=== PATIENT | female | born 1985 | race Asian ===

== ENCOUNTER 2017-03-20 06:32 | Emergency (ER) | payer SELFPAY ==
[~2017-03-20] VITALS: Ht 177.8 cm; Wt 118.6 kg
[~2017-03-20 06:32] MED LIST: ADALAT; AMOXICILLIN875 MG PO; ANTIVERT 25MG25 MG PO; CARAFATE 1GM1 G PO; DEPO PROVER150 MG/ML IM; EC NAPROSYN500 MG PO; FLEXERIL 1010 MG/TAB PO; FLEXERIL10 MG PO; GLUCOPHAGE500 MG/TAB PO; HCTZ; IBUPROFEN800 MG PO; MAGIMIN80 MG PO; METFORMIN; MOTRIN 800800 MG/TAB PO; NEXIUM 20MG CAP20 MG PO; NO HOME MEDICATIONS; PREDNISONE20 MG PO; PRENATAL1 TA2 PO; TESSALON P100 MG/CAP PO; [UNRECOGNIZED DRUG - OTHER]
[2017-03-20 06:40] VITALS: BP 141/94; TEMP 97.8
[2017-03-20 07:31] LABS: BASO # 0.1 (0.0-0.2); BASO % 0.4 % (0.0-2.0); EOS # 0.2 (0.0-0.7); EOS % 1.1 % (0-4.0); GRAN # 11.9 (1.4-6.5); GRAN % 72.1 % (42.2-75.2); HEMATOCRIT 39.7 % (37.0-47.0); HEMOGLOBIN 13.3 g/dl (12.5-16.0); LYMPH # 3.3 (1.2-3.4); MEAN CELL VOLUME 88 fl (80.0-100.0); MEAN CORPUSCULAR HEMOGLOBIN 30 pg (27.0-31.0); MEAN CORPUSCULAR HGB CONC 34 g/dl (33.0-37.0); MONO % 5.9 % (1.7-9.3); PLATELET COUNT 313 K/mm3 (130-400); RED BLOOD COUNT 4.49 M/mm3 (4.10-5.30); WHITE BLOOD COUNT 16.5 K/mm3 (4.8-10.8)
[2017-03-20 07:38] LABS: COLLECTION METHOD CLEAN CATCH
[2017-03-20 07:51] LABS: MUCOUS Present /lpf; PH 5 (5-8); URINE APPEARANCE Cloudy; URINE BACTERIA Rare /hpf; URINE BILIRUBIN Negative (NEGATIVE); URINE BLOOD Negative (NEGATIVE); URINE CALCIUM OXALATE CRYSTAL Present /hpf; URINE COLOR Yellow; URINE GLUCOSE Negative (NEGATIVE); URINE KETONE Trace (NEGATIVE); URINE LEUKOCYTE ESTERASE 1+ (NEGATIVE); URINE PROTEIN(semi-quant) Negative (NEGATIVE); URINE UROBILINOGEN Negative (NEGATIVE)
[2017-03-20 08:26] LABS: ADJUSTED CALCIUM 9.2 mg/dL (8.4-10.2); ALBUMIN 4.1 gm/dL (3.5-5.0); BILIRUBIN,TOTAL 1.1 mg/dL (0.0-1.0); CALCIUM 9.3 mg/dL (8.4-10.2); CREATININE, serum 0.61 mg/dL (0.52-1.25); POTASSIUM 3.7 mmol/L (3.4-5.0); TOTAL PROTEIN 7.2 gm/dL (6.4-8.2)
[2017-03-20] MEDS ORDERED: MACROBID 1100 MG/CAP PO (08:39)
[2017-03-20] MEDS ORDERED: ZOFRAN ODT4 MG PO (08:39)
[2017-03-20 08:54] VITALS: PULSE 99
== END 2017-03-20 08:54 | disposition home or self-care (01) ==
LOC: COL.ER 06:32
PROVIDERS: Emergency Medicine; Physician Assistant
DX: N39.0 Urinary tract infection, site not specified (principal); R19.7 Diarrhea, unspecified; I10 Essential (primary) hypertension; E03.9 Hypothyroidism, unspecified; E66.9 Obesity, unspecified; Z68.37 Body mass index [BMI] 37.0-37.9, adult; Z79.84 Long term (current) use of oral hypoglycemic drugs
CPT/HCPCS: J1885; J2405; J7030

== ENCOUNTER → 2019-10-10 | Outpatient (CLI) | payer BC ==
[~2019-10-10] MED LIST changes: +MACROBID 1100 MG/CAP PO; +ZOFRAN ODT4 MG PO
== END ==
LOC: ZCOL.LAB 07:26
DX: J02.9 Acute pharyngitis, unspecified (principal); R11.0 Nausea; Z20.828 Contact with and (suspected) exposure to other viral communicable diseases

== ENCOUNTER → 2020-01-14 | Outpatient (CLI) | payer BC | LOC: ZCOL.LAB 16:01 | DX: R19.7 Diarrhea, unspecified (principal); R05 Cough; R09.81 Nasal congestion; Z20.828 Contact with and (suspected) exposure to other viral communicable diseases ==

== ENCOUNTER 2020-02-04 01:13 | Emergency (ER) | payer SELFPAY ==
[~2020-02-04] VITALS: Ht 177.8 cm; Wt 109.1 kg
[2020-02-04 01:22] VITALS: BP 129/86; TEMP 97.8
[2020-02-04 02:25] VITALS: PULSE 82
== END 2020-02-04 02:25 | disposition home or self-care (01) ==
LOC: COL.ER 01:13
DX: S63.501A Unspecified sprain of right wrist, initial encounter (principal); E11.9 Type 2 diabetes mellitus without complications; Z79.84 Long term (current) use of oral hypoglycemic drugs; X50.9XXA Other and unspecified overexertion or strenuous movements or postures, initial encounter; Y92.59 Other trade areas as the place of occurrence of the external cause

== ENCOUNTER 2020-06-13 00:33 | Observation (INO) | payer OTHER ==
[2020-06-13] VITALS (9 sets, daily range): BP systolic 123–150; BP diastolic 70–91; PULSE 85–101; TEMP 97.6–97.9
[~2020-06-13] VITALS: Ht 177.8 cm; Wt 115.0 kg
[2020-06-13 01:22] LABS: COLLECTION METHOD CLEAN CATCH
[2020-06-13 01:25] LABS: BASO # 0.1 (0.0-0.2); BASO % 0.6 % (0.0-2.0); EOS # 0.6 (0.0-0.7); EOS % 5.5 % (0-4.0); GRAN # 5.8 (1.4-6.5); GRAN % 55.3 % (42.2-75.2); HEMATOCRIT 40.3 % (37.0-47.0); HEMOGLOBIN 13.3 g/dl (12.5-16.0); LYMPH # 3.2 (1.2-3.4); LYMPH % 30.7 % (20.0-51.0); MEAN CELL VOLUME 89 fl (80.0-100.0); MEAN CORPUSCULAR HEMOGLOBIN 29 pg (27.0-31.0); MEAN CORPUSCULAR HGB CONC 33 g/dl (33.0-37.0); MEAN PLATELET VOLUME 10.2 fl (7.4-10.4); MONO # 0.8 (0.1-0.6); MONO % 7.5 % (1.7-9.3); PLATELET COUNT 300 K/mm3 (130-400); RED BLOOD COUNT 4.52 M/mm3 (4.10-5.30); REDCELL DISTRIBUTION WIDTH-CV 12.7 % (11.5-14.5)
[2020-06-13 01:30] LABS: MUCOUS Present /lpf; PH 5 (5-8); SQUAMOUS EPITHELIAL 0-2 /hpf; URINE APPEARANCE Clear; URINE BACTERIA None Seen /hpf; URINE BILIRUBIN Negative (NEGATIVE); URINE BLOOD Negative (NEGATIVE); URINE COLOR Yellow; URINE GLUCOSE 3+ (NEGATIVE); URINE KETONE Trace (NEGATIVE); URINE LEUKOCYTE ESTERASE Trace (NEGATIVE); URINE NITRATE Negative (NEGATIVE); URINE PROTEIN(semi-quant) Negative (NEGATIVE); URINE UROBILINOGEN Negative (NEGATIVE)
[2020-06-13 01:35] LABS: BILIRUBIN,TOTAL 0.6 mg/dL (0.0-1.0); CREATININE, serum 0.61 (0.52-1.25); POTASSIUM 3.8 mmol/L (3.4-5.0); TOTAL PROTEIN 7.2 gm/dL (6.4-8.2)
[2020-06-13] MEDS ORDERED: LEVAQUIN 750MG750 M1 PO (04:31)
[2020-06-13] MEDS ORDERED: ZOFRAN ODT4 MG PO (04:31)
[2020-06-13] MEDS ORDERED: FLAGYL500 MG PO (04:31)
[2020-06-13] MEDS ORDERED: ZESTRIL 20MG TA20 MG PO (09:19)
[2020-06-13] MEDS ORDERED: LOPRESSOR 225 MG/TAB PO (09:20)
[2020-06-13] MEDS ORDERED: SYNTHROID0.175 MG PO (10:37)
[2020-06-13] MEDS ORDERED: PRAVACHOL 20MG20 MG PO (10:38)
[2020-06-13] MEDS ORDERED: CANA100T PO (10:40)
--- NOTE | 2020-06-13 11:52 | NUR ---
Manjit to the [facility] with Gilberto dye. Patient admitted to 349. Home med list obtained form PCP and reviewed with patient. Ns to gravity per anesthesia. Patient voided. She used surgical scrub on abdomen & brushed her teeth. Patient consent obtained, without questions or concerns. Her mother at bedside. Will await her return
[2020-06-13] MEDS ORDERED: ULTRAM 50MG TAB50 MG PO (13:53)
--- NOTE | 2020-06-13 15:38 | NUR ---
Patient has returned post op. SHe is already asking when she can go home. We discussed criteria for discharge. Ice water provided. Vss. [place] rae.
--- NOTE | 2020-06-13 17:48 | NUR ---
Patient really wanting to get home. Vitals stable. She tolerate sherbet. Voided again. Incisions edges well appoximated. We reviewed all discharge teaching. We discussed incision cares. signs & symptoms of infection reviewed. Iv dc. She deneis pain and nausea. She ambulated to vehicle with belongings. Her mother taking her home. Denies questions or concerns.
== END 2020-06-13 17:51 | disposition home or self-care (01) ==
LOC: COL.ER 00:33 → SURG 07:59
PROVIDERS: Emergency Medicine; ADMIT Surgery
DX: K35.80 Unspecified acute appendicitis (principal); I10 Essential (primary) hypertension; M19.90 Unspecified osteoarthritis, unspecified site; E11.9 Type 2 diabetes mellitus without complications; Z20.822 Contact with and (suspected) exposure to COVID-19; Z79.84 Long term (current) use of oral hypoglycemic drugs; Z79.899 Other long term (current) drug therapy; Z85.850 Personal history of malignant neoplasm of thyroid
CPT/HCPCS: G0378; J0690; J1100; J1885; J1956; J2405; J2704; J3010; J7030; Q9967

== ENCOUNTER 2020-11-08 11:14 | Emergency (ER) | payer OTHER ==
[~2020-11-08] VITALS: Ht 177.8 cm; Wt 110.0 kg
[~2020-11-08 11:14] MED LIST changes: +CANA100T PO; +FLAGYL500 MG PO; +LEVAQUIN 750MG750 M1 PO; +LOPRESSOR 225 MG/TAB PO; +PRAVACHOL 20MG20 MG PO; +SYNTHROID0.175 MG PO; +ULTRAM 50MG TAB50 MG PO; +ZESTRIL 20MG TA20 MG PO
[2020-11-08 11:52] VITALS: TEMP 97.9
[2020-11-08 12:30] VITALS: BP 144/103; PULSE 80
== END 2020-11-08 12:30 | disposition home or self-care (01) ==
LOC: COL.ER 11:14
DX: M25.562 Pain in left knee (principal)

== ENCOUNTER 2021-08-07 10:08 | Outpatient (RCR) | payer OTHER | END 2021-08-08 | LOC: WSOH | DX: M25.561 Pain in right knee (principal); E11.9 Type 2 diabetes mellitus without complications; I10 Essential (primary) hypertension; Z98.890 Other specified postprocedural states; Z90.49 Acquired absence of other specified parts of digestive tract; Y99.0 Civilian activity done for income or pay ==

== ENCOUNTER 2021-08-31 11:10 | Outpatient (RCR) | payer OTHER | END 2021-09-02 11:00 | disposition home or self-care (01) | LOC: WSOH 11:10 | DX: M25.561 Pain in right knee (principal); I10 Essential (primary) hypertension; E11.9 Type 2 diabetes mellitus without complications; Z90.89 Acquired absence of other organs; Z98.890 Other specified postprocedural states; Y99.0 Civilian activity done for income or pay ==